=== PATIENT | male | born 1990 | race African-American/Black ===

== ENCOUNTER 2017-11-26 22:40 | Emergency (ER) | payer SELFPAY ==
[~2017-11-26] VITALS: Ht 172.7 cm; Wt 56.7 kg
[2017-11-26] MEDS: SODIUM CHLORIDE 0.9% 1,000 ML IV ONE (00:45)
[2017-11-26] MEDS ORDERED: MORPHINE SULFATE 4 MG/ML SYR/VIAL IV ONE (23:45)
[2017-11-26] MEDS ORDERED: ETOMIDATE (2MG/ML) 20ML VIAL IV ONE (23:45)
[2017-11-26] MEDS ORDERED: ONDANSETRON HCL 4 MG/2 ML VIAL IV ONE (23:45)
[2017-11-27 01:02] LABS: BUN/Creatinine Ratio 8.3; Calcium 7.5 mg/dL (8.5-10.1); Potassium 4.1 mmol/L (3.5-5.1)
[2017-11-27] MEDS: SODIUM CHLORIDE 0.9% 1,000 ML IV ONE (01:24)
[2017-11-27 01:33] VITALS: BP 131/77
== END 2017-11-27 02:07 | disposition home or self-care (01) ==
LOC: ER 22:40
DX: S82.391A Other fracture of lower end of right tibia, initial encounter for closed fracture (principal); X50.0XXA Overexertion from strenuous movement or load, initial encounter; Y93.89 Activity, other specified; Y99.8 Other external cause status; Y92.89 Other specified places as the place of occurrence of the external cause
CPT/HCPCS: 27825; 36415; 73600; 73610; 80048; 96361; 96374; 96375; 99152; 99285; J2270; J2405; J7030

== ENCOUNTER 2018-05-23 21:21 | Emergency (ER) | payer MEDICAID, OTHER ==
[~2018-05-23] VITALS: Ht 172.7 cm; Wt 59.0 kg
[2018-05-23 21:30] VITALS: BP 162/99
[2018-05-23 22:26] LABS: Urine Bacteria NONE SEEN /hpf (None Seen); Urine Blood Negative /uL (Negative); Urine Mucus FEW (None Seen); Urine Specific Gravity 1.032 (1.001-1.035); Urine WBC 2 /hpf (0 - 3)
[2018-05-24] MEDS ORDERED: AZITHROMYCIN 250 MG TAB PO ONE (03:00)
[2018-05-24] MEDS ORDERED: cefTRIAXone SOD 1,000 MG VL IM ONE (03:00)
== END 2018-05-24 03:55 | disposition home or self-care (01) ==
LOC: ER 21:34
DX: R30.0 Dysuria (principal); M79.661 Pain in right lower leg; R10.30 Lower abdominal pain, unspecified; J02.9 Acute pharyngitis, unspecified; Z20.2 Contact with and (suspected) exposure to infections with a predominantly sexual mode of transmission
CPT/HCPCS: 73590; 81001; 87491; 96372; 99285; J0696

== ENCOUNTER 2018-12-25 15:17 | Emergency (ER) | payer MEDICAID ==
[~2018-12-25] VITALS: Ht 170.2 cm; Wt 68.0 kg
[2018-12-25 15:48] VITALS: BP 136/72
== END 2018-12-25 19:00 | disposition left against medical advice (07) ==
LOC: ER 15:17
DX: M79.604 Pain in right leg (principal); Z53.21 Procedure and treatment not carried out due to patient leaving prior to being seen by health care provider

== ENCOUNTER → 2019-10-25 | Emergency (ER) | payer MEDICAID ==
[~2019-10-25] VITALS: Ht 172.7 cm; Wt 61.2 kg
[~2019-10-25] MED LIST: SODIUM CHLORIDE 0.9% 1,000 ML IV ONE; SODIUM CHLORIDE 0.9% 1,000 ML IVB ONE; THIAMINE 100mg/ml INJ (200mg/2ml VIAL) ONE; THIAMINE INJ 100 MG in SODIUM CHLORIDE 0.9% 1,000 ML IV ONE
[2019-10-25 18:32] LABS: Urine WBC None Seen /hpf (0 - 3)
[2019-10-25 18:35] LABS: Basophils # (auto) 0 uL; Basophils % (auto) 0.3 % (0.0-2.0); Eosinophils # (auto) 0 uL; Eosinophils % (auto) 0.5 % (0.0-7.0); Hematocrit 45.6 % (41.0-53.0); Hemoglobin 15.3 g/dL (13.5-17.5); Lymphocytes # (auto) 1.5 uL; Lymphocytes % (auto) 24.2 % (10.0-50.0); Mean Corpuscular Hemoglobin 32.4 pg (28.0-32.0); Mean Corpuscular Hgb Conc. 33.6 g/dL (32.0-36.0); Mean Corpuscular Volume 96.5 fL (80.0-100.0); Monocytes # (auto) 0.5 uL; Monocytes % (auto) 7.7 % (0.0-12.0); Neutrophils % (auto) 67.3 % (37.0-80.0); Nucleated Red Blood Cells % 0.1 %; Platelet Count (auto) 305 10^3/uL (140-450); Red Blood Cells 4.73 10^6/uL (4.5-5.90); Red Cell Distribution Width 15.2 % (11.8-14.3)
[2019-10-25 18:50] LABS: Albumin 4.8 g/dL (3.4-5.0); Potassium 4.3 mmol/L (3.5-5.1)
[2019-10-25 18:52] LABS: Urine Bacteria NONE SEEN /hpf (None Seen); Urine Blood Negative /uL (Negative); Urine Mucus FEW (None Seen); Urine Specific Gravity 1.012 (1.001-1.035)
[2019-10-25 18:55] LABS: BUN/Creatinine Ratio 9.8; Bilirubin, Total 0.5 mg/dL (0.2-1.0); Salicylate 2.3 mg/dL (2.8-20.0); Total Protein 9.6 g/dL (6.4-8.2)
[2019-10-25 19:00] LABS: Acetaminophen < 2.0 ug/mL (10-30)
[2019-10-25 19:01] LABS: Amphetamine Screen, Urine NEGATIVE (NEGATIVE); Barbiturate Scree,Urine NEGATIVE (NEGATIVE); Benzodiazephine Screen, Urine NEGATIVE (NEGATIVE); Cocaine Screen, Urine NEGATIVE (NEGATIVE); Phencyclidine Screen, Urine NEGATIVE (NEGATIVE)
[2019-10-25 19:10] LABS: Cannabinoid Screen, Urine POSITIVE (NEGATIVE); Opiate Scree,Urine NEGATIVE (NEGATIVE)
[2019-10-25 23:55] LABS: Albumin 4.3 g/dL (3.4-5.0); Potassium 3.9 mmol/L (3.5-5.1)
[2019-10-25 23:57] LABS: Bilirubin, Total 0.5 mg/dL (0.2-1.0); Total Protein 8.7 g/dL (6.4-8.2)
[2019-10-26 07:33] VITALS: BP 115/63
== END | disposition home or self-care (01) ==
LOC: ER 17:34
DX: T43.3X1A Poisoning by phenothiazine antipsychotics and neuroleptics, accidental (unintentional), initial encounter (principal); T40.2X1A Poisoning by other opioids, accidental (unintentional), initial encounter; F10.129 Alcohol abuse with intoxication, unspecified; F17.210 Nicotine dependence, cigarettes, uncomplicated; Y92.9 Unspecified place or not applicable
CPT/HCPCS: 36415; 80053; 80307; 80320; 80329; 81001; 85025; 93005; 96365; 96366; 99284; J3411; J7030; 96361